=== PATIENT | female | born 1980 | race African-American/Black ===

== ENCOUNTER 2017-07-26 08:00 | Observation (INO) | payer OTHER ==
[~2017-07-26] VITALS: Ht 177.8 cm; Wt 89.4 kg
[2017-07-26 08:03] VITALS: BP 156/96
[2017-07-26] MEDS ORDERED: NACL 0.9% 1,000 ML IV ONE (08:34)
[2017-07-26] MEDS ORDERED: METOCLOPRAMIDE 10 MG/2 ML INJ VIAL IVP ONE (08:35)
[2017-07-26] MEDS ORDERED: diphenhydrAMINE 50 MG/ML VIAL IVP ONE (08:35)
[2017-07-26 08:59] LABS: BASOPHILS # (AUTO) 0.4 K/uL (0.00-0.22); BASOPHILS % (AUTO) 4.6 % (0.0-2.0); EOSINOPHILS % (AUTO) 0.4 % (0.0-4.0); HEMATOCRIT 42.3 % (36-48); HEMOGLOBIN 13.8 g/dL (12.0-16.0); LYMPHOCYTES # (AUTO) 0.8 K/uL (2.5-16.5); LYMPHOCYTES % (AUTO) 8.8 % (20.5-51.1); MEAN CORPUSCULAR HEMOGLOBIN 28 pg (27-31); MEAN CORPUSCULAR HGB CONC 33 g/dL (33-37); MEAN CORPUSCULAR VOLUME 85 fL (80-94); MONOCYTES # (AUTO) 0.2 K/uL (0.8-1.0); MONOCYTES % (AUTO) 2.2 % (1.7-9.3); NEUTROPHILS # (AUTO) 7.5 K/uL (1.8-7.7); PLATELET COUNT (AUTO) 291 K/uL (140-450); RED BLOOD CELL COUNT(AUTO) 4.99 MIL/uL (4.20-5.40); RED CELL DISTRIBUTION WIDTH 12.8 % (11.6-13.7); WHITE BLOOD COUNT (AUTO) 8.9 K/uL (4.8-10.8)
[2017-07-26 09:09] LABS: ANION GAP 7.9 (8-16); CARBON DIOXIDE 23.9 mmol/L (21-32); CREATININE 0.8 mg/dL (0.6-1.3); POTASSIUM 3.8 mmol/L (3.5-5.1)
[2017-07-26 09:15] LABS: ALBUMIN 3.9 g/dL (3.4-5.0); TOTAL BILIRUBIN 0.7 mg/dL (0.0-1.0)
[2017-07-26 09:21] LABS: BILIRUBIN,URINE NEGATIVE (NEGATIVE); BLOOD, URINE TRACE-L (NEGATIVE); COLOR,URINE YELLOW (YELLOW); LEUKOCYTE ESTERASE ,URINE NEGATIVE (NEGATIVE); NITRITE, URINE NEGATIVE (NEGATIVE); PH,URINE 7.5 (5.0-9.0); UGLUCOSE NEGATIVE (NEGATIVE)
[2017-07-26 09:25] LABS: APPEARANCE,URINE CLEAR (CLEAR)
[2017-07-26 09:27] LABS: RBC,URINE 0-5 (RARE) /HPF (0-5); WBC,URINE 0-5 (RARE) /HPF (0-5)
[2017-07-26] MEDS ORDERED: ACETAMINOPHEN 325 MG TAB PO PRN (10:10)
[2017-07-26] MEDS ORDERED: DEXT 5% /NACL 0.9% 1,000 ML IV SCH (10:10)
[2017-07-26] MEDS ORDERED: MORPHINE SULFATE 2 MG/ML SYR IVP PRN ×2 (10:10→13:16)
[2017-07-26] MEDS ORDERED: ONDANSETRON 4 MG/2 ML VIAL IVP PRN (10:10)
[2017-07-26] MEDS ORDERED: LORazepam 2 MG/ML VIAL IVP PRN (10:10)
[2017-07-26] MEDS ORDERED: MORPHINE SULFATE 4 MG/ML SYR IVP PRN (10:10)
[2017-07-26] MEDS ORDERED: methylPREDNISolone SS 125 MG/2 ML VIAL IVP SCH (11:00)
[2017-07-26 12:00] VITALS: BP 133/85
[2017-07-26 15:40] LABS: CARBON DIOXIDE 23.9 mmol/L (21-32); CREATININE 0.9 mg/dL (0.6-1.3); POTASSIUM 3.9 mmol/L (3.5-5.1)
[2017-07-26 15:47] LABS: ALBUMIN 3.7 g/dL (3.4-5.0); TOTAL BILIRUBIN 0.6 mg/dL (0.0-1.0)
[2017-07-26 16:00] VITALS: BP 140/72
== END 2017-07-26 16:35 | disposition home or self-care (01) ==
LOC: MED 08:00 → INTOOBSV 10:09 → MTU 10:09
PROVIDERS: ADMIT Hospitalist; ATTEND Hospitalist
DX: E87.1 Hypo-osmolality and hyponatremia (principal); E86.0 Dehydration; R11.2 Nausea with vomiting, unspecified; G44.89 Other headache syndrome; Z88.6 Allergy status to analgesic agent
CPT/HCPCS: 36415; 70450; 80053; 81001; 84443; 85025; 85610; 85730; 87081; 96361; 96374; 96375; 99285; G0378; J1200; J2270; J2765; J2930; J7030; J7042